=== PATIENT | male | born 1970 | race Caucasian/White ===

== ENCOUNTER 2019-03-16 11:38 | Inpatient (IN) | payer SELFPAY ==
[~2019-03-16] VITALS: Ht 175.3 cm; Wt 126.8 kg
[2019-03-16 12:17] LABS: Basophils # (auto) 0.1 uL; Basophils % (auto) 1.1 % (0.0-2.0); Eosinophils # (auto) 0.3 uL; Eosinophils % (auto) 3.6 % (0.0-7.0); Hematocrit 49.5 % (41.0-53.0); Hemoglobin 16.4 g/dL (13.5-17.5); Mean Corpuscular Hemoglobin 31.5 pg (28.0-32.0); Mean Corpuscular Hgb Conc. 33.1 g/dL (32.0-36.0); Mean Corpuscular Volume 95.2 fL (80.0-100.0); Monocytes # (auto) 0.5 uL; Monocytes % (auto) 6.7 % (0.0-12.0); Neutrophils # (auto) 4.2 uL; Neutrophils % (auto) 59.6 % (37.0-80.0); Nucleated Red Blood Cells % 0.1 %; Platelet Count (auto) 260 10^3/uL (140-450); Red Cell Distribution Width 14.6 % (11.8-14.3)
[2019-03-16 12:32] LABS: INR 0.95 (0.9-1.15); Partial Thromboplastin Time 26.6 sec (23.64-32.05)
[2019-03-16 12:34] LABS: Alanine Aminotransferase 69 U/L (16-61); Albumin 3.3 g/dL (3.4-5.0); Anion Gap 8 (5-15); Aspartate Aminotransferase 25 U/L (15-37); Blood Urea Nitrogen 16 mg/dL (7-18); Calcium 8.3 mg/dL (8.5-10.1); Carbon Dioxide 23 mmol/L (21-32); Chloride 107 mmol/L (98-107); GFR African American 94 mL/min; GFR Non-African American 78 mL/min; Glucose 217 mg/dL (74-106); Sodium 138 mmol/L (136-145)
[2019-03-16 12:39] LABS: Alkaline Phosphatase 77 U/L (45-117); Bilirubin, Total 0.3 mg/dL (0.2-1.0); Total Protein 7.3 g/dL (6.4-8.2)
[2019-03-16] MEDS ORDERED: ASPirin 81 mg TAB PO ONE (13:00)
[2019-03-16] MEDS ORDERED: MORPHINE SULFATE 4 MG/ML SYR/VIAL IV ONE (13:00)
[2019-03-16] MEDS ORDERED: ONDANSETRON HCL 4 MG/2 ML VIAL IV ONE (13:00)
[2019-03-16 13:32] LABS: Cholesterol 179 mg/dL (< 200); HDL Cholesterol 40 mg/dL (40-59); LDL Cholesterol 121 mg/dL (< 100); Triglycerides 175 mg/dL (< 150)
[2019-03-16] MEDS ORDERED: DEXTROSE (50%) 50ML SYRG IV PRN (16:45)
[2019-03-16] MEDS ORDERED: hydrALAZINE HCL 20 MG/ML VL IV PRN (16:45)
[2019-03-16] MEDS ORDERED: NITROGLYCERIN 0.2MG/HR TOPICAL PATCH TD ONE (16:45)
[2019-03-16] MEDS ORDERED: MORPHINE SULF INJ 2 MG/ML SYRINGE 1ML IV PRN (16:45)
[2019-03-16] MEDS ORDERED: NITROGLYCERIN 0.4 MG SL TAB SL PRN (16:45)
[2019-03-16] MEDS ORDERED: ONDANSETRON HCL 4 MG/2 ML VIAL IV PRN (16:45)
[2019-03-16] MEDS ORDERED: ACETAMINOPHEN 500 MG TAB PO PRN (16:45)
[2019-03-16] MEDS: ACCU-CHEK COMFORT CURVE STRIP VI SCH ×2 (17:15→21:31)
[2019-03-16] MEDS: InsuLIN REG 1unit/0.01ml Soln (100units/ml) SC SCH ×2 (17:15→21:33)
[2019-03-16] MEDS ORDERED: SIMV-8 PO (18:16)
[2019-03-16] MEDS ORDERED: LISI-646 PO (18:16)
[2019-03-16] MEDS ORDERED: GLIM2TAB33 PO (18:16)
[2019-03-16] MEDS ORDERED: METF-370 PO (18:16)
--- NOTE | 2019-03-16 19:20 | NUR ---
Telemetry admit from ER TULIO MARION admitted to Telemetry unit after SBAR received. Patient oriented to Darius Mcdonough primary RN, unit, room 246, bed B, and unit policies regarding patient care and visiting hours. Patient now on continuous telemetry monitoring, tele box #16 and telemetry reading on arrival to unit is SR 92. Patient VS taken, weighed by bedscale and encouraged to call if they need something. All questions and concerns addressed, patient verbalized understanding.
[2019-03-16] MEDS: MORPHINE SULF INJ 2 MG/ML SYRINGE 1ML IV PRN (20:44)
[2019-03-16] MEDS: ATORVASTATIN 20 MG TAB PO SCH (21:32)
[2019-03-16] MEDS: DOCUSATE SOD 100 MG CAP PO SCH (21:32)
[2019-03-16] MEDS: METOPROLOL TARTRATE 25 MG TAB PO SCH (21:33)
[2019-03-16 22:37] VITALS: BP 112/58
[2019-03-17 05:29] VITALS: BP 98/58
[2019-03-17] MEDS: ACCU-CHEK COMFORT CURVE STRIP VI SCH ×4 (06:21→22:16)
[2019-03-17] MEDS: MORPHINE SULF INJ 2 MG/ML SYRINGE 1ML IV PRN ×2 (06:43→12:30)
[2019-03-17] MEDS: InsuLIN REG 1unit/0.01ml Soln (100units/ml) SC SCH ×4 (06:43→22:16)
[2019-03-17 07:03] LABS: Basophils # (auto) 0.1 uL; Basophils % (auto) 0.8 % (0.0-2.0); Eosinophils # (auto) 0.3 uL; Eosinophils % (auto) 3.2 % (0.0-7.0); Hematocrit 50.4 % (41.0-53.0); Hemoglobin 16.9 g/dL (13.5-17.5); INR 0.97 (0.9-1.15); Lymphocytes # (auto) 2.5 uL; Lymphocytes % (auto) 30.3 % (10.0-50.0); Mean Corpuscular Hgb Conc. 33.5 g/dL (32.0-36.0); Mean Corpuscular Volume 95.3 fL (80.0-100.0); Monocytes # (auto) 0.7 uL; Monocytes % (auto) 8.6 % (0.0-12.0); Neutrophils # (auto) 4.8 uL; Neutrophils % (auto) 57.1 % (37.0-80.0); Nucleated Red Blood Cells % 0.1 %; Partial Thromboplastin Time 27.5 sec (23.64-32.05); Platelet Count (auto) 267 10^3/uL (140-450); Potassium 4.5 mmol/L (3.5-5.1); Red Blood Cells 5.29 10^6/uL (4.5-5.90); Red Cell Distribution Width 14.6 % (11.8-14.3); White Blood Cell 8.4 10^3/uL (4.4-10.8)
[2019-03-17 07:07] LABS: BUN/Creatinine Ratio 15.8; Calcium 9.1 mg/dL (8.5-10.1)
--- NOTE | 2019-03-17 08:00 | NUR ---
OPENING SHIFT NOTE. ASSUMED CARE OF PT. PATIENT AWAKE AND ALERT. NO SOB OR SIGNS OF DISTRESS NOTED. INSTRUCTED ON POC AND TO CALL FOR HELP PRN. BED IN LOWEST POSITION WITH SIDE RAILS UP X2. WILL CONTINUE TO MONITOR.
[2019-03-17 09:00] VITALS: BP 122/62
[2019-03-17] MEDS: ASPirin-EC 81 mg tab PO SCH (10:45)
[2019-03-17] MEDS: DOCUSATE SOD 100 MG CAP PO SCH ×2 (10:45→22:04)
[2019-03-17] MEDS: FAMOTIDINE 20 MG TAB PO SCH (10:46)
[2019-03-17] MEDS: METOPROLOL TARTRATE 25 MG TAB PO SCH ×2 (10:47→22:06)
[2019-03-17] MEDS: LISINOPRIL 10 MG TAB PO SCH (10:48)
--- NOTE | 2019-03-17 12:00 | NUR ---
ECHO COMPLETED. AWAITING RESULTS.
[2019-03-17 13:00] VITALS: BP 122/75
[2019-03-17 17:00] VITALS: BP 113/62
--- NOTE | 2019-03-17 18:00 | NUR ---
UA COLLECTED. SENT TO LAB.
[2019-03-17 19:57] LABS: Alcohol, Urine < 3.0 mg/dL (0-5); Amphetamine Screen, Urine NEGATIVE (NEGATIVE); Barbiturate Scree,Urine NEGATIVE (NEGATIVE); Benzodiazephine Screen, Urine NEGATIVE (NEGATIVE); Cannabinoid Screen, Urine NEGATIVE (NEGATIVE); Cocaine Screen, Urine NEGATIVE (NEGATIVE); Opiate Scree,Urine NEGATIVE (NEGATIVE); Phencyclidine Screen, Urine NEGATIVE (NEGATIVE)
[2019-03-17 20:10] LABS: Urine Bacteria NONE SEEN /hpf (None Seen); Urine Blood Negative /uL (Negative); Urine Mucus FEW (None Seen); Urine WBC <1 /hpf (0 - 3)
[2019-03-17 22:00] VITALS: BP 126/60
[2019-03-17] MEDS: ATORVASTATIN 20 MG TAB PO SCH (22:05)
--- NOTE | 2019-03-18 | NUR ---
ROUNDS Reminded patient on Nothing by mouth status related to stress test today. Patient verbalized understanding.
[2019-03-18] MEDS: MORPHINE SULF INJ 2 MG/ML SYRINGE 1ML IV PRN ×2 (00:05→10:33)
[2019-03-18 05:10] VITALS: BP 102/55
[2019-03-18] MEDS: ACCU-CHEK COMFORT CURVE STRIP VI SCH ×4 (06:05→22:00)
[2019-03-18] MEDS: InsuLIN REG 1unit/0.01ml Soln (100units/ml) SC SCH ×4 (06:08→21:58)
[2019-03-18 08:00] VITALS: BP 103/75
--- NOTE | 2019-03-18 08:00 | NUR ---
PT TO NUCLEAR MED PER W/C FOR STRESS TEST IN A STABLE CONDITION.
[2019-03-18] MEDS ORDERED: ADENOSINE 106 MG in GIVE UN-DILUTED 0 ML IV STA (08:31)
--- NOTE | 2019-03-18 09:30 | NUR ---
PT NOTED TO BE BACK IN HIS ROOM AT THIS TIME. NO CHANGES NOTED IN PT'S CONDITION.
--- NOTE | 2019-03-18 10:30 | NUR ---
PT CALLED AND STATED THAT HIS STRESS WAS FINISHED AND THAT HE COULD EAT. PT REFUSED TRAY THAT WAS SAVE FOR HIM BUT TOOK SANDWICH AND WATER AFTER. PT ALSO C/O CHEST PAIN AT THIS TIME AND WILL BE MEDICATED PER PRN ORDER. WILL CONTINUE TO MONITOR PT.
[2019-03-18] MEDS: ASPirin-EC 81 mg tab PO SCH (10:31)
[2019-03-18] MEDS: FAMOTIDINE 20 MG TAB PO SCH (10:31)
[2019-03-18] MEDS: DOCUSATE SOD 100 MG CAP PO SCH ×2 (10:31→21:17)
[2019-03-18] MEDS: LISINOPRIL 10 MG TAB PO SCH (10:32)
[2019-03-18] MEDS: METOPROLOL TARTRATE 25 MG TAB PO SCH ×2 (10:32→21:57)
[2019-03-18] MEDS ORDERED: ATOR20TA50 PO (11:06)
[2019-03-18 12:37] VITALS: BP 98/64
--- NOTE | 2019-03-18 12:45 | NUR ---
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 The pt is alert and oriented times 3. Pt states he is from [place]. When asked by admitting for a payment the pt stated he did not have any money.
[2019-03-18] MEDS ORDERED: ASPI81CH43 PO (15:18)
[2019-03-18] MEDS: HYDROcodone-ACET 5/325MG TAB PO PRN (16:52)
[2019-03-18 17:00] VITALS: BP 90/59
--- NOTE | 2019-03-18 18:39 | NUR ---
STILL HAS NO RESULT OF CARDIOLITE STRESS TEST AT THIS TIME. PT TOOK DIET AND FLUIDS WELL AND STILL HAVING BEARABLE CHEST DISCOMFORT AT TIMES. PT'S VISITING AT THIS TIME
--- NOTE | 2019-03-18 19:30 | NUR ---
Opening Shift Note Received report from blake Davey RN. Assumed care of patient, awake and alert. No S/S of distress/SOB or pain. Instructed on POC and to call for assist PRN, will continue to monitor for changes Q1hr and PRN. Bed placed in lowest position, and call light within reach.
--- NOTE | 2019-03-18 19:50 | NUR ---
Report given to Omaira for transfer of care.
[2019-03-18 20:00] VITALS: BP 98/64
[2019-03-18] MEDS: ATORVASTATIN 20 MG TAB PO SCH (21:53)
[2019-03-18 22:00] VITALS: BP 95/52
[2019-03-19] MEDS: HYDROcodone-ACET 5/325MG TAB PO PRN ×3 (00:26→16:15)
[2019-03-19 04:53] VITALS: BP 100/69
[2019-03-19] MEDS: InsuLIN REG 1unit/0.01ml Soln (100units/ml) SC SCH ×4 (05:54→21:55)
[2019-03-19] MEDS: ACCU-CHEK COMFORT CURVE STRIP VI SCH ×4 (05:54→21:55)
--- NOTE | 2019-03-19 07:04 | NUR ---
PT RESTED THROUGHOUT THE NIGHT WITH NO DISTRESS;STATES DESIRE TO GO HOME/AND OR TAKE A SHOWER. CALL LIGHT IN REACH. VITAL SIGNS STABLE.
--- NOTE | 2019-03-19 07:20 | NUR ---
RECEIVED REPORT FROM LION RN. PT LYING IN BED AAOX4, VOICED NO C/O PAIN AND WAS IN NO DISTRESS. DISCUSSED WITH PT POC AND PT VERBALIZED UNDERSTANDING. BED WAS IN LOWEST POSITION, SIDERAILS WERE UP X2 AND CALL LISK FOR ASSIST NEEDED. WILL CONTIUE TO MONITOR PT.GHT WITHIN PT'S REACH. REMINDED PT TO USE CALL LIGHT AND A
--- NOTE | 2019-03-19 08:00 | NUR ---
TALKED TO Mikie ROSA NP ABOUT RESULT OF STRESS TEST IT WAS HOLDING THE PT'S DISCHARGE AND STILL HAD NO RESULT NOTED AT THIS TIME. SHE STATED TO PUT PT ON NPO EXCEPT MEDS FOR POSSIBLE CARDIAC CATH AFTER SHE CHECKED THE IMAGES TAKEN YESTERDAY. SHE WILL TALK TO DR. GUZMAN ABOUT THE STRESS TEST RESULT AND WILL PHONE ME BACK. PT INSTRUCTED ABOUT NPO AND POSSIBLE PROCEDURE. PT VERBALIZED UNDERSTANDING. WILL CONTINUE TO MONITOR PT.
[2019-03-19 09:00] VITALS: BP 107/54
--- NOTE | 2019-03-19 09:37 | NUR ---
TALKED TO Mikie ROSA CARDIO PACKAGING LINE ATTENDANT AND SHE STATED THAT THE STRESS TEST IS NEGATIVE AND PT CAN BE DISCHARGE PER CARDIO POINT OF VIEW.
[2019-03-19] MEDS: LISINOPRIL 10 MG TAB PO SCH (10:00)
[2019-03-19] MEDS: METOPROLOL TARTRATE 25 MG TAB PO SCH ×2 (10:00→21:56)
[2019-03-19] MEDS: ASPirin-EC 81 mg tab PO SCH (10:02)
[2019-03-19] MEDS: DOCUSATE SOD 100 MG CAP PO SCH ×2 (10:03→21:52)
[2019-03-19] MEDS: FAMOTIDINE 20 MG TAB PO SCH (10:03)
[2019-03-19 10:41] VITALS: BP 100/54
--- NOTE | 2019-03-19 12:05 | NUR ---
Nutrition Assessment Notes please see attached link for complete assessment Est. Needs based on ABW (98 kg): 8552-4104 kcal (17-20 kcal/kgBW), 98-107 gms pro (1.0-1.1 gms/kgBW). Will continue to monitor pertinent labs and reassess nutrient need prn Addendum: 03/19/19 at [address] Amended: Links added.
[2019-03-19] MEDS ORDERED: INSULIN LANTUS (GLARGINE) 1 /0.01ml (100units/ml) SC ONE (12:45)
[2019-03-19 13:00] VITALS: BP 115/71
[2019-03-19 17:00] VITALS: BP 104/63
--- NOTE | 2019-03-19 19:30 | NUR ---
Opening shift note Patient in bed alert and oriented x 4, verbally coherent, able to make needs known. Patient's respiration even and unlabored, denies pain and discomfort at this time. Plan of care discussed, patient verbalized understanding. Will continue to monitor.
--- NOTE | 2019-03-19 20:00 | NUR ---
Patient requested for [place] juice and michael crackers. Complete linen change done per patient's request. All needs attended, will continue to monitor.
[2019-03-19] MEDS: ATORVASTATIN 20 MG TAB PO SCH (21:52)
[2019-03-19 22:00] VITALS: BP 99/55
[2019-03-20 05:00] VITALS: BP 127/72
[2019-03-20 06:10] LABS: Basophils # (auto) 0.1 uL; Basophils % (auto) 1.1 % (0.0-2.0); Eosinophils # (auto) 0.2 uL; Eosinophils % (auto) 3.1 % (0.0-7.0); Hematocrit 47.9 % (41.0-53.0); Hemoglobin 16.2 g/dL (13.5-17.5); Lymphocytes # (auto) 2.3 uL; Lymphocytes % (auto) 31.5 % (10.0-50.0); Mean Corpuscular Hemoglobin 32.1 pg (28.0-32.0); Mean Corpuscular Hgb Conc. 33.9 g/dL (32.0-36.0); Mean Corpuscular Volume 94.9 fL (80.0-100.0); Monocytes # (auto) 0.6 uL; Monocytes % (auto) 8.4 % (0.0-12.0); Neutrophils # (auto) 4.1 uL; Neutrophils % (auto) 55.9 % (37.0-80.0); Nucleated Red Blood Cells % 0.1 %; Platelet Count (auto) 234 10^3/uL (140-450); Red Blood Cells 5.05 10^6/uL (4.5-5.90); Red Cell Distribution Width 14.5 % (11.8-14.3); White Blood Cell 7.3 10^3/uL (4.4-10.8)
[2019-03-20] MEDS: HYDROcodone-ACET 5/325MG TAB PO PRN (06:24)
[2019-03-20] MEDS: ACCU-CHEK COMFORT CURVE STRIP VI SCH ×3 (06:24→18:52)
[2019-03-20] MEDS: InsuLIN REG 1unit/0.01ml Soln (100units/ml) SC SCH ×3 (06:24→17:00)
[2019-03-20 06:31] LABS: Albumin 3.1 g/dL (3.4-5.0); Calcium 8.7 mg/dL (8.5-10.1); Potassium 4.2 mmol/L (3.5-5.1)
[2019-03-20 06:41] LABS: BUN/Creatinine Ratio 14.2; Bilirubin, Total 0.5 mg/dL (0.2-1.0); Total Protein 6.8 g/dL (6.4-8.2)
--- NOTE | 2019-03-20 07:24 | NUR ---
Report received from Kassie. Pt noted to be aaox4, pleasant and cooperative. Pt stated that prn pain med did not work and his chest discomfort was 8/10. Plan of care, meds, treatments and safety discussed with pt and pt verbalized understanding. Pt NPO for possible cardiac cath tody and pt aware of same. Will meicate pt for chest discomfort as per prn order. Will continue to monitor pt.
[2019-03-20] MEDS: MORPHINE SULF INJ 2 MG/ML SYRINGE 1ML IV PRN (07:41)
[2019-03-20 08:00] VITALS: BP 117/74
[2019-03-20 09:00] VITALS: BP 117/74
[2019-03-20] MEDS: FAMOTIDINE 20 MG TAB PO SCH (10:00)
[2019-03-20] MEDS: ASPirin-EC 81 mg tab PO SCH (10:00)
[2019-03-20] MEDS: DOCUSATE SOD 100 MG CAP PO SCH (10:00)
[2019-03-20] MEDS ORDERED: INSULIN LANTUS (GLARGINE) 1 /0.01ml (100units/ml) SC SCH (10:00)
[2019-03-20] MEDS: LISINOPRIL 10 MG TAB PO SCH (10:00)
--- NOTE | 2019-03-20 11:40 | NUR ---
DR. SALAZAR CALLED AND TOLD ME TO TELL PT THAT CARDIAC CATH WILL BE DONE LATER IN THE DAY AND TO KEEP PT NPO AND MAKE PT AWARE OF THE PLAN. NO ORDER FOR CONSENT TOLD PT ABOUT THE WHAT MD STATED AND PT VERBALIZED UNDERSTANDING. PT'S PRESENT AT BEDSIDE. WILL CONTINUE TO CHECK ON PT.
[2019-03-20] MEDS ORDERED: SODIUM CHLORIDE 0.9% 1,000 ML IV SCH (11:45)
[2019-03-20 13:00] VITALS: BP 102/66
--- NOTE | 2019-03-20 13:35 | NUR ---
BROUGHT PT TO CATH PER BED AAOX4, PLEASANT AND COOPERATIVE AND WAS IN NO PAIN. PT FOR CARDIAC CATH AND PT NOT CONSENTED AT THIS TIME MD HAS NOT TALKED TO HIM ABOUT THE PROCEDURE. GAVE REPORT TO ADELAIDE HERRERA.
[2019-03-20] MEDS ORDERED: ANGIOMAX 250 MG VIAL IV ONE (15:29)
[2019-03-20] MEDS ORDERED: fentaNYL CITRATE 100 MCG/2 ML VL ONE (15:29)
[2019-03-20] MEDS ORDERED: MIDAZOLAM HCL 1MG/1ML-2 ML VIAL ONE (15:29)
[2019-03-20] MEDS ORDERED: SODIUM CHL 0.9% 0 ML ONE (15:30)
[2019-03-20] MEDS ORDERED: VERAPAMIL 2.5MG/ML INJ 2ML VIAL IV ONE (15:32)
[2019-03-20] MEDS ORDERED: HEPARIN SODIUM (PORCINE) 5000 UNITS/ML 1ML VIAL ONE (15:32)
[2019-03-20] MEDS ORDERED: LIDOCAINE 2%HCL (LOCAL ANESTH.) INJ 20ML MDV ONE (15:40)
[2019-03-20] MEDS ORDERED: IOHEXOL 350 MG/ML 100ML IJ ONE (15:46)
[2019-03-20] MEDS ORDERED: PHENYLEPHRINE HCL 10 MG/ML VL ONE (15:56)
[2019-03-20] MEDS ORDERED: ATROPINE SULF 1 MG/10ml SYR ONE (16:02)
--- NOTE | 2019-03-20 16:54 | NUR ---
REPORT RECEIVED FROM ROGELIO HERRERA FROM SQL DATA ANALYST. PT STILL IN SQL DATA ANALYST BUT WILL RETURN TO HIS ROOM SOON.
[2019-03-20 17:00] VITALS: BP 99/52
--- NOTE | 2019-03-20 17:14 | NUR ---
PT RETURNED FROM [facility] S/P LEFT HEART CATH WITH RT WRIST ACCESS WITH VASC BAND PER BED ACCOMPANIED BY ROGELIO HERRERA. PT NOTED TO BE AAOX4 AND WAS IN NO DISCOMFORT. PT'S PRESENT AT THE TIME. WILL CONTINUE TO MONITOR PT.
--- NOTE | 2019-03-20 18:15 | NUR ---
WAS IN TO SEE PT AND MD LEFT PRESCRIPTIONS AND DISCHARGE ORDER AND PT AWARE OF SAME. PRESENT AT BEDSIDE.
--- NOTE | 2019-03-20 19:00 | NUR ---
Vasc band removed and no bleeding noted from it. 2x2 and tegaderm dressings applied to site.
--- NOTE | 2019-03-20 20:15 | NUR ---
Discharge instructions given as ordered. Encourage to follow up with PMD as instructed. All questions and concerns addressed. Patient verbalized understanding. Medication reconciliation form completed and copy given to patient. IV removed with catheter intact, pressure dressing applied. Telemetry unit returned to ICU. Patient taken to vehicle ambulatory with all personal belongings, refused to use a wheelchair accompanied by family member. No distress noted at time of departure.
[2019-03-20] MEDS ORDERED: ATORVASTATIN 20 MG TAB PO SCH (22:00)
== END 2019-03-20 20:15 | disposition home or self-care (01) | DRG 287 ==
LOC: ER 11:43 → TELE 11:44 → TELE-EAST 17:58
PROVIDERS: ADMIT Nurse Practitioner Acute Care; ATTEND Internal Medicine
PROC: 4A023N7 Measurement of Cardiac Sampling and Pressure, Left Heart, Percutaneous Approach (ICD-10-PCS; principal; 2019-03-20)
PROC: B2111ZZ Fluoroscopy of Multiple Coronary Arteries using Low Osmolar Contrast (ICD-10-PCS; 2019-03-20)
PROC: B2151ZZ Fluoroscopy of Left Heart using Low Osmolar Contrast (ICD-10-PCS; 2019-03-20)
DX: R07.89 Other chest pain (principal); Z68.41 Body mass index [BMI] 40.0-44.9, adult; I24.9 Acute ischemic heart disease, unspecified; E11.65 Type 2 diabetes mellitus with hyperglycemia; E66.01 Morbid (severe) obesity due to excess calories; E78.00 Pure hypercholesterolemia, unspecified; E78.5 Hyperlipidemia, unspecified; I10 Essential (primary) hypertension; I25.10 Atherosclerotic heart disease of native coronary artery without angina pectoris; Z79.84 Long term (current) use of oral hypoglycemic drugs; Z82.49 Family history of ischemic heart disease and other diseases of the circulatory system
CPT/HCPCS: 36415; 71045; 78452; 80048; 80053; 80061; 80307; 81001; 82962; 83036; 83880; 84443; 84484; 85025; 85379; 85610; 85730; 86141; 93005; 93017; 93306; 96374; 96375; G0378; J0153; J1815; J2250; J2405